=== PATIENT | male | born 1965 | race Caucasian/White ===

== ENCOUNTER 2021-04-01 16:37 | Inpatient (IN) | payer OTHER, SELFPAY ==
--- NOTE | ~2021-04-01 | CT_ITS ---
EXAMINATION: CT ABDOMEN AND PELVIS WITH CONTRAST CLINICAL INFORMATION: Abdominal tenderness and pain COMPARISON: None TECHNIQUE: Multidetector volumetric images were obtained from the superior aspect of the liver through the pubic symphysis following administration 100 mL of Omnipaque 350 intravenous contrast. Sagittal and coronal reformatted images were obtained on the technologist's workstation. Oral contrast: No This CT examination was performed using dose optimization techniques as appropriate, variously including the following: *Automated exposure control *Adjustment of mA and/or kV according to patient size (this includes techniques or standardized protocols for targeted exams where dose is matched to indication/reason for exam; i.e. extremities or head) *Use of iterative reconstruction technique DLP: 1789 mGy-cm FINDINGS: LUNG BASES: The visualized lung bases are unremarkable. LIVER, GALLBLADDER, AND BILIARY TREE: The liver is normal in size, shape, and attenuation. No focal hepatic lesion or biliary ductal dilatation is present. The gallbladder is unremarkable with no evidence of radiopaque gallstones, gallbladder wall thickening, or obvious pericholecystic inflammatory changes. PANCREAS: Unremarkable. SPLEEN: Unremarkable. ADRENAL GLANDS: Unremarkable. KIDNEYS AND URETERS: The kidneys are normal in size, shape, and attenuation. No hydronephrosis, hydroureter, or calculi seen. No perinephric stranding. BLADDER: Unremarkable. GASTROINTESTINAL TRACT: A areas a loop of small bowel contained within umbilical hernia. There is mild wall hyperemia. Proximal to small bowel's entrance into the hernia is mildly dilated and has mild surrounding inflammatory changes. The remainder of the small bowel is normal in caliber. The colon is normal in caliber. Colonic diverticulosis is noted. ABDOMINAL WALL: Umbilical hernia containing a loop of small bowel and a small amount of free fluid. The hernia neck measures 2.2 cm. LYMPH NODES: Normal. VASCULAR: The abdominal aorta is normal in caliber. Mild calcific atherosclerotic disease. PELVIC VISCERA: Unremarkable. OSSEOUS STRUCTURES: Unremarkable. CT/CT abdomen pelvis w con IMPRESSION: Umbilical hernia containing a loop of small bowel. Evidence of strangulation including mild dilatation, wall hyperemia, and surrounding free fluid. Findings were discussed with KRISTAL Bejarano at 8:20pm.
[2021-04-01 16:56] VITALS: BP 158/99; PULSE 70; RESP 18; TEMP 36.7; O2SAT 98; BMI 34.4
[2021-04-01 18:24] LABS: MANUAL DIFF FLAG NO
[2021-04-01 18:28] LABS: Basophils Percent Auto 0.3 % (0-2); Eosinophils Absolute Auto 0.1 X10*3/uL (0.0-0.4); Eosinophils Percent Auto 1.3 % (0-4); Hematocrit 40.5 % (42-52); Imm Gran Abs Auto 0.02 X10*3/uL (0.00-0.03); Imm Gran Pct Auto 0.2 % (0.0-0.4); Lymphocytes Absolute Auto 3.2 X10*3/uL (1.2-4.9); Lymphocytes Percent Auto 30.9 % (20-40); Mean Corpuscular HGB Conc 32.1 g/dl (31.0-36.0); Mean Corpuscular Volume 90.2 fL (80-98); Monocytes Absolute Auto 0.8 X10*3/uL (0.1-1.2); Monocytes Percent Auto 7.3 % (2-11); Neutrophils Absolute Auto 6.3 X10*3/uL (2.0-8.3); Platelet Count 218 X10*3/uL (160-400); Red Blood Count 4.49 X10*6/uL (4.60-5.80); Red Cell Distribution Width 12.8 % (11.0-16.0); White Blood Count 10.4 X10*3/uL (4.8-10.8)
[2021-04-01 18:47] LABS: Alanine Aminotransferase 19 U/L (0-40); Alkaline Phosphatase 99 U/L (39-117); Anion Gap 14 (12-20); Aspartate Amino Transferase 17 U/L (5-37); Bilirubin Total 0.3 mg/dL (0.0-1.0); Blood Urea Nitrogen 16 mg/dL (9-16); Calcium 9.4 mg/dL (8.4-10.2); Carbon Dioxide 30 mmol/L (22-29); Chloride 100 mmol/L (96-108); Creatinine Clr Calc Pharmacy 125.6; Estimated Glomerular Filt Rate > 60; Glucose Random 129 mg/dL (60-115); Lipase 7 U/L (8-78); Magnesium 1.9 mg/dL (1.6-2.6); Sodium 140 mmol/L (135-145); Total Protein 7.3 g/dL (6.5-8.0)
[2021-04-01] MEDS: iohexoL 350 MG/ML 100 ML INFUS..BTL IV (19:55)
--- NOTE | 2021-04-01 20:14 | ED_ITS ---
HPI - Abdominal Pain General Chief Complaint: Abdominal Pain Stated Complaint: Abdominal pain Time Seen by Provider: 04/01/21 17:29 Source: patient Mode of arrival: ambulatory Limitations: no limitations History of Present Illness HPI narrative: 55-year-old male with past medical history of obesity and hypertension presents with 3 days of severe central abdominal pain just above his umbilicus. States that he can feel something popping out. He does report having approximately 3 months of abdominal tenderness and changes in bowel habits after feeling a pop feeling in his abdomen. He did follow-up with his primary care however there were substantial findings at that time. He does state to feel tired, but does not report any fevers, chills, chest pain or pressure, palpitations, shortness of breath, shortness of breath on exertion, abdominal distention, dysuria, hematuria, nausea, vomiting, diarrhea, cons tipation, anorexia, or edema. MD elicited complaint: abdominal pain Onset (ago): day(s) (3) Pain Consistency: constant Location: periumbilical Severity: severe Pain scale (0-10): 9 Quality: aching Radiation: none Exacerbating factors: bowel movement and movement Relieving factors: nothing Associated symptoms: denies other symptoms Related Data Home Medications Medication Instructions Recorded Confirmed doxycycline monohydrate 1 cap PO BID 04/01/21 04/01/21 lisinopril-hydrochlorothiazide 1 tab PO DAILY 04/01/21 Allergies Allergy/AdvReac Type Severity Reaction Status Date / Time No Known Allergies Allergy Verified 04/01/21 17:29 Review of Systems Review of Systems Constitutional: Positive fatigue, No Weight loss, No Fever, No Chills, No Night Sweats, No Malaise ENT/Mouth: No Hearing loss, No Ear Pain, No Nasal Congestion, No Sinus Pain, No Hoarseness, No sore throat, No Rhinorrhea, No Swallowing Difficulty Eyes: No Eye Pain, No Swelling, No Redness, No Foreign Body, No Discharge, No Vision Changes Cardiovascular: No Chest Pain, No SOB, No Dyspnea on Exertion, No Orthopnea, No Edema, No Palpitations Respiratory: No Cough, No Sputum, No Wheezing, No Smoke Exposure, No Dyspnea Gastrointestinal: Positive abdominal pain umbilicus, no nausea, no Vomiting, no Diarrhea, no abdominal Pain, No Hematochezia, No Melena Genitourinary: no irregular bleeding, No Dysuria, No Urinary Frequency, No Hematuria, No Urinary Incontinence, No Urgency, No Flank Pain, No Urinary Flow Changes, No Hesitancy Musculoskeletal: No joint pain, No Myalgias, No Joint Swelling Skin: No Skin Lesions, No rash Neuro: No Weakness, No Numbness, No Paresthesias, No Loss of Consciousness, No Dizziness, No Headache Psych: No Anxiety/Panic, No Depression, No SI/HI/AH/VH, No Social Issues Heme/Lymph: No Bruising, No Bleeding,No Lymphadenopathy Endocrine: No Polyuria, No Polydipsia, No Temperature Intolerance Yes all other systems are reviewed and are negative Physical Exam Vital Signs: Vital Signs: Last Vital Signs Temp 97.6 F 04/01/21 21:06 Pulse 76 04/01/21 21:06 Resp 17 04/01/21 21:06 BP 161/113 H 04/01/21 21:06 Pulse Ox 96 04/01/21 21:06 Body Mass Index 34.4 Appearance: Alert. Oriented X3. Moderate distress. Eyes: Pupils equal, round and reactive to light. ENT: Pharynx normal. Moist mucous membranes Neck: Normal inspection. Neck supple. CVS: Normal heart rate and rhythm. Pulses normal. Respiratory: No respiratory distress. Breath sounds normal. Abdomen: Soft and ventrally tender Skin: Skin warm and dry. Normal skin color. Normal skin turgor. Extremities: No lower extremity edema. Neuro: No motor deficit. No sensory deficit. Cranial nerves 2-12 intact Course Course Course Narrative: 55-year-old male with past medical history of hypertension and obesity presents with 3 days of intense umbilical abdominal pain. Feels like something is popping out of his belly button. Patient has an obese body habitus and exam is limited. Will order CT scan of abdomen pelvis with contrast. Lab values are otherwise unremarkable. Labs were drawn while in the emergency department. 8:18 p.m. radiology called to update on CT scan results, strangulated umbilical hernia with inflammatory changes, no free air. Order for type and screen, EKG, cultures, Zosyn and pain management. Discussion with Dr. Land at 8:29 p.m.. Plan will be to admit to surgery for the morning. Discussed with patient and he agrees with plan of care. MDM - Abdominal Pain Differential Diagnosis Differential diagnosis: Likely abdominal pain, aortic dissection, acute appendicitis, bowel perforation, constipation and small bowel obstruction Differential diagnosis narrative:: Hernia Medical Records Attestation: I reviewed the patient's medical records. Lab Data Attestation: I reviewed the patient's lab results. Result diagrams: 04/01/21 18:17 04/01/21 18:17 Labs: Lab Results 04/01/21 04/01/21 04/01/21 Range/Units 18:17 18:17 18:17 WBC 10.4 (4.8-10.8) X10*3/uL RBC 4.49 L (4.60-5.80) X10*6/uL Hgb 13.0 L (14.0-18.0) g/dl Hct 40.5 L (42-52) % MCV 90.2 (80-98) fL MCH 29.0 (27.0-33.0) pg MCHC 32.1 (31.0-36.0) g/dl RDW 12.8 (11.0-16.0) % Plt Count 218 (160-400) X10*3/uL MPV 9.0 L (9.4-12.4) fL Immature Gran % (Auto) 0.2 (0.0-0.4) % Neut % (Auto) 60.0 (45-73) % Lymph % (Auto) 30.9 (20-40) % [place] % (Auto) 7.3 (2-11) % Eos % (Auto) 1.3 (0-4) % Baso % (Auto) 0.3 (0-2) % Lymph # (Auto) 3.2 (1.2-4.9) X10*3/uL [place] # (Auto) 0.8 (0.1-1.2) X10*3/uL Eos # (Auto) 0.1 (0.0-0.4) X10*3/uL Baso # (Auto) 0.0 (0.0-0.2) X10*3/uL Abs Immat Gran (auto) 0.02 (0.00-0.03) X10*3/uL Absolute Neuts (auto) 6.3 (2.0-8.3) X10*3/uL Absolute Nucleated RBC 0.000 (0.0-0.012) X10*3/uL Nucleated RBC % (auto) 0.0 (0.0-0.2) /100WBC Hold Purple Top SEE NOTE Sodium 140 (135-145) mmol/L Potassium 4.0 (3.3-5.1) mmol/L Chloride 100 (96-108) mmol/L Carbon Dioxide 30 H (22-29) mmol/L Anion Gap 14 (12-20) BUN 16 (9-16) mg/dL Creatinine 0.84 (0.5-1.4) mg/dL Estim Creat Clear Calc 125.6 Estimated GFR > 60 Random Glucose 129 H (60-115) mg/dL Calcium 9.4 (8.4-10.2) mg/dL Magnesium 1.9 (1.6-2.6) mg/dL Total Bilirubin 0.3 (0.0-1.0) mg/dL AST 17 (5-37) U/L ALT 19 (0-40) U/L Alkaline Phosphatase 99 (39-117) U/L Total Protein 7.3 (6.5-8.0) g/dL Albumin 4.0 (3.5-5.0) g/dL Lipase 7 L (8-78) U/L Urine Color Urine Appearance Urine pH (5.0-8.0) Ur Specific [place] (1.005-1.025) Urine Protein (NEG-TRACE) MG/DL Urine Glucose (UA) (NEG) MG/DL Urine Ketones (NEG) MG/DL Urine Blood (NEG) Urine Nitrite (NEG) Ur Leukocyte Esterase (NEG) COVID-19 (YOLANDA) (Negative) COVID-19 Clin [facility] Blood Type Antibody Screen 04/01/21 04/01/21 04/01/21 Range/Units 20:58 20:58 21:02 WBC (4.8-10.8) X10*3/uL RBC (4.60-5.80) X10*6/uL Hgb (14.0-18.0) g/dl Hct (42-52) % MCV (80-98) fL MCH (27.0-33.0) pg MCHC (31.0-36.0) g/dl RDW (11.0-16.0) % Plt Count (160-400) X10*3/uL MPV (9.4-12.4) fL Immature Gran % (Auto) (0.0-0.4) % Neut % (Auto) (45-73) % Lymph % (Auto) (20-40) % [place] % (Auto) (2-11) % Eos % (Auto) (0-4) % Baso % (Auto) (0-2) % Lymph # (Auto) (1.2-4.9) X10*3/uL [place] # (Auto) (0.1-1.2) X10*3/uL Eos # (Auto) (0.0-0.4) X10*3/uL Baso # (Auto) (0.0-0.2) X10*3/uL Abs Immat Gran (auto) (0.00-0.03) X10*3/uL Absolute Neuts (auto) (2.0-8.3) X10*3/uL Absolute Nucleated RBC (0.0-0.012) X10*3/uL Nucleated RBC % (auto) (0.0-0.2) /100WBC Hold Purple Top Sodium (135-145) mmol/L Potassium (3.3-5.1) mmol/L Chloride (96-108) mmol/L Carbon Dioxide (22-29) mmol/L Anion Gap (12-20) BUN (9-16) mg/dL Creatinine (0.5-1.4) mg/dL Estim Creat Clear Calc Estimated GFR Random Glucose (60-115) mg/dL Calcium (8.4-10.2) mg/dL Magnesium (1.6-2.6) mg/dL Total Bilirubin (0.0-1.0) mg/dL AST (5-37) U/L ALT (0-40) U/L Alkaline Phosphatase (39-117) U/L Total Protein (6.5-8.0) g/dL Albumin (3.5-5.0) g/dL Lipase (8-78) U/L Urine Color YELLOW Urine Appearance CLEAR Urine pH 8.0 (5.0-8.0) Ur Specific [place] 1.010 (1.005-1.025) Urine Protein TRACE (NEG-TRACE) MG/DL Urine Glucose (UA) NEG (NEG) MG/DL Urine Ketones NEG (NEG) MG/DL Urine Blood NEG (NEG) Urine Nitrite NEG (NEG) Ur Leukocyte Esterase NEG (NEG) COVID-19 (YOLANDA) Negative (Negative) COVID-19 Clin Com See Note Blood Type O Positive Antibody Screen NEGATIVE Imaging Data CT scan - abdomen: Attestation: I personally reviewed and interpreted this imaging study as follows: Radiologist's impression: FINDINGS: LUNG BASES: The visualized lung bases are unremarkable. LIVER, GALLBLADDER, AND BILIARY TREE: The liver is normal in size, shape, and attenuation. No focal hepatic lesion or biliary ductal dilatation is present. The gallbladder is unremarkable with no evidence of radiopaque gallstones, gallbladder wall thickening, or obvious pericholecystic inflammatory changes. PANCREAS: Unremarkable. SPLEEN: Unremarkable. ADRENAL GLANDS: Unremarkable. KIDNEYS AND URETERS: The kidneys are normal in size, shape, and attenuation. No hydronephrosis, hydroureter, or calculi seen. No perinephric stranding. BLADDER: Unremarkable. GASTROINTESTINAL TRACT: A areas a loop of small bowel contained within umbilical hernia. There is mild wall hyperemia. Proximal to small bowel's entrance into the hernia is mildly dilated and has mild surrounding inflammatory changes. The remainder of the small bowel is normal in caliber. The colon is normal in caliber. Colonic diverticulosis is noted. ABDOMINAL WALL: Umbilical hernia containing a loop of small bowel and a small amount of free fluid. The hernia neck measures 2.2 cm. LYMPH NODES: Normal. VASCULAR: The abdominal aorta is normal in caliber. Mild calcific atherosclerotic disease. PELVIC VISCERA: Unremarkable. OSSEOUS STRUCTURES: Unremarkable. CT/CT abdomen pelvis w con IMPRESSION: Umbilical hernia containing a loop of small bowel. Evidence of strangulation including mild dilatation, wall hyperemia, and surrounding free fluid. Findings were discussed with KRISTAL Bejarano at 8:20pm. Critical Care Time Critical Care Time Critical Care Time: Yes Total Critical Care Time: 45 Attestation: I have personally provided critical care time exclusive of time spent on separately billable procedures. Time includes review of laboratory data, rad iology results, discussion with consultants, and monitoring for potential decompensation. Interventions were performed as documented. Discharge Plan Discharge Clinical Impression: Hernia Patient Disposition: Admitted As Inpatient [facility] Past Medical History Attestation statement: The following information was validated with the patient. Source: old records reviewed Medical History (Updated 04/01/21 @ 21:40 by Jessica Land MD) HTN (hypertension) Lyme disease Surgical History (Updated 04/01/21 @ 21:40 by Jessica Land MD) H/O arthroscopy of right knee Social History Social History (Updated 04/01/21 @ 21:41 by Jessica Land MD) Alcohol intake: never Patient Tobacco Use Status: Never used Tobacco Substance Use Type: Crack/Cocaine Substance Use Frequency: Occasionally Last Used Substance: Days (ago) Last Used Substance Other:: 03/29/21 Advance Directives: No Advance Directives Information Provided: Yes
--- NOTE | 2021-04-01 20:26 | ECG_ITS ---
Test Reason : ABDOMINAL PAIN Blood Pressure : / mmHG Vent. Rate : 059 BPM Atrial Rate : 059 BPM P-R Int : 130 ms QRS Dur : 098 ms QT Int : 410 ms P-R-T Axes : 048 074 040 degrees QTc Int : 405 ms Sinus bradycardia Inferior infarct , age undetermined Abnormal ECG No previous ECGs available Referred By: Yanna Cano Electronically Signed By:AALIYAH GUILLERMO MD
--- NOTE | 2021-04-01 20:28 | PC.NURSE ---
Pt last ate 2 hours ago.
[2021-04-01 21:06] VITALS: BP 161/113; PULSE 76; RESP 17; TEMP 36.4; O2SAT 96
[2021-04-01] MEDS: Piperacillin Sodium/Tazobactam 3.375 GM in 0.9 % Sodium Chloride 50 ML IV (21:10)
[2021-04-01] MEDS: Morphine Sulfate 4 MG/ML CARTRIDGE IVPUSH (21:11)
[2021-04-01] MEDS: 0.9 % Sodium Chloride 1,000 ML 999 ML IVCONT (21:12)
[2021-04-01 21:22] LABS: Glucose Urine UA NEG (NEG); Leukocyte Esterase Urine NEG (NEG); Nitrite Urine NEG (NEG); Urine Blood NEG (NEG); Urine Ketones NEG (NEG); Urine Protein TRACE MG/DL (NEG-TRACE)
[2021-04-01 21:25] LABS: COVID-19 Test Negative (Negative)
[2021-04-01 21:26] LABS: Appearance Urine CLEAR; Color Urine YELLOW
--- NOTE | 2021-04-01 21:28 | PC.NURSE ---
Dr Land at bedside discussing plan for surgery with pt and pt's s/o. Pt expresses understanding. Pt medicated per NOV. Pt HTN, Dr Land aware and Yanna ROMEO made aware. Stretcher low locked, rails raised.
--- NOTE | 2021-04-01 21:32 | PM.HPGS ---
History of Present Illness History of Present Illness Date of Service: 04/01/21 Chief complaint: Abdominal pain Narrative: Zander Juarez is a 55 year old male who has a 3 day history of central abdominal pain slowly worsening. The pain became severe while he was at work today, and he presented to the emergency department for evaluation. He reports that the problem began about 3 months ago. He felt a pop in his mid abdomen and has experienced abdominal pain on and off. The problem became more persistent about 3 days ago. He also reports recent difficulty with constipation and has been straining. He does not note a temporal relationship between straining and onset of the abdominal pain. He has not experienced nausea or vomiting. He has been able to eat normally. In the emergency room, a CT scan of the abdomen and pelvis was obtained. This demonstrated a loop of small bowel present within an umbilical hernia. There is a small amount of fluid present. Findings were interpreted as consistent with a strangulated hernia; however, ED staff was able to reduce the hernia, and the patient reports significant improvement in abdominal pain following this. He is under treatment for Lyme disease. Presenting symptoms included fever and rash. He is taking doxycycline. Symptoms have resolved. Review of Systems Constitutional: Constitutional: Denies chills and Denies fever(s) Eyes: Eyes: Reports requires corrective lenses (For reading only) ENT: Reports Normal hearing present Cardiovascular: Cardiovascular: Denies chest pain, Denies palpitations and Denies dyspnea Respiratory: Respiratory: Denies cough, Denies dyspnea and Denies wheezing Gastrointestinal: Gastrointestinal: Reports as per HPI Genitourinary: Genitourinary: Denies dysuria Musculoskeletal: Comments: Right knee pain, uses cane for ambulation Integumentary/Breasts: Skin/Breast: Reports rash (Recent welts due to Lyme disease, resolved with doxycycline) Neurologic: Reports Normal hearing present Endocrine: Endocrine: Denies palpitations Allergic/Immunologic: Allergic/Immunologic: Denies wheezing PMF Past Medical History Medical History (Updated 04/01/21 @ 21:40 by Jessica Land MD) HTN (hypertension) Lyme disease Surgical History Surgical History (Updated 04/01/21 @ 21:40 by Jessica Land MD) H/O arthroscopy of right knee Social History Social History (Updated 04/01/21 @ 21:41 by Jessica Land MD) Alcohol intake: never Patient Tobacco Use Status: Never used Tobacco Substance Use Type: Crack/Cocaine Substance Use Frequency: Occasionally Last Used Substance: Days (ago) Last Used Substance Other:: 03/29/21 Advance Directives: No Advance Directives Information Provided: Yes Meds Allergies Allergy/AdvReac Type Severity Reaction Status Date / Time No Known Allergies Allergy Verified 04/01/21 17:29 Home Medications Medication Instructions Recorded Confirmed Last Taken Type lisinopril-hydrochlorothiazide 1 tab PO DAILY 04/01/21 Unknown History Physical Exam Vital Signs: Vital Signs: Last Vital Signs Temp 97.6 F 04/01/21 21:06 Pulse 76 04/01/21 21:06 Resp 17 04/01/21 21:06 BP 161/113 H 04/01/21 21:06 Pulse Ox 96 04/01/21 21:06 Body Mass Index 34.4 Const: General: cooperative, no acute distress and alert HENMT: Head: Yes normocephalic and Yes atraumatic Eyes: EOM: EOMs intact bilaterally Resp: Effort & Inspection: normal respiratory effort Auscultation: clear to auscultation bilaterally Cardio: Rate: regular rate Rhythm: regular rhythm GI: Other: Round, soft, nondistended, bowel sounds active, umbilical hernia present, mild tenderness surrounding soft tissues Skin: Rashes: no rashes Neuro: Cranial nerves: Yes Normal hearing present Extrem: General: Yes edema (Bilateral lower legs) Results Results Labs: Short CBC 04/01/21 Range/Units 18:17 WBC 10.4 (4.8-10.8) X10*3/uL Hgb 13.0 L (14.0-18.0) g/dl Hct 40.5 L (42-52) % Plt Count 218 (160-400) X10*3/uL BMP 04/01/21 18:17 Sodium 140 Potassium 4.0 Chloride 100 Carbon Dioxide 30 H BUN 16 Creatinine 0.84 Calcium 9.4 Liver Function 04/01/21 Range/Units 18:17 Total Bilirubin 0.3 (0.0-1.0) mg/dL AST 17 (5-37) U/L ALT 19 (0-40) U/L Alkaline Phosphatase 99 (39-117) U/L Albumin 4.0 (3.5-5.0) g/dL Urine 04/01/21 Range/Units 20:58 Urine Color YELLOW Urine Appearance CLEAR Urine pH 8.0 (5.0-8.0) Ur Specific [place] 1.010 (1.005-1.025) Urine Protein TRACE (NEG-TRACE) MG/DL Urine Glucose (UA) NEG (NEG) MG/DL Assessment and Plan (1) Umbilical hernia: Status: Acute 55-year-old male presenting with symptomatic umbilical hernia, likely incarcerated on presentation and reduced by ED staff. Because of escalating symptoms and incarceration, urgent repair is appropriate. I discussed this with him and reviewed the technique for open repair as and for laparoscopic repair. We discussed the anticipated course of recovery and risks including but not limited to recurrence, infection, bleeding, DVT and PE. We discussed the use of mesh. He agrees to proceed. He will be admitted tonight with tentative plan for surgery tomorrow. He is aware that Dr. Joiner or Dr. Jack will see him tomorrow and will assume care. Doxycycline will be continued for treatment of Lyme disease. Usual antihypertensive medication will be continued as well. BP noted to be high in the emergency department. This may be due, at least in part, to acute pain. Quality Stroke Does the patient have a stroke diagnosis?: No VTE Prior VTE?: No VTE Risk Level:: Surgical - moderate VTE Device Contraindication: N/A - Device Ordered VTE Drug Contraindication: Treatment Not Indicated Procedures Date of Service Date of Service: 04/01/21
--- NOTE | 2021-04-01 22:02 | PHA.MEDREC ---
Pharmacy Consult ? Medication Reconciliation Pharmacy has completed the medication reconciliation.
[2021-04-01 22:27] VITALS: BP 137/80; PULSE 62; RESP 20; TEMP 36.7; O2SAT 99
[2021-04-01 23:20] VITALS: BP 137/80; PULSE 64; RESP 15; TEMP 36.7; O2SAT 99
[2021-04-01] MEDS: Dextrose 5 % and Lactated Ring 1,000 ML 100 ML IVCONT (23:23)
[2021-04-02] VITALS (19 sets, daily range): BP systolic 117–191; BP diastolic 62–102; PULSE 57–78; RESP 12–18; TEMP 36.1–36.6; O2SAT 92–99
--- NOTE | 2021-04-02 07:37 | PC.NURSE ---
Called [facility] – [place], [place] for nurse to nurse report, awaiting callback.
[2021-04-02] MEDS: lisinopriL 20 MG TABLET PO (09:37)
[2021-04-02] MEDS: Dextrose 5 % and Lactated Ring 1,000 ML 100 ML IVCONT ×2 (09:37→22:05)
[2021-04-02] MEDS: Morphine Sulfate 4 MG/ML CARTRIDGE IVPUSH ×3 (09:37→22:16)
--- NOTE | 2021-04-02 09:39 | MHC.CM.PN ---
CM met with Patient at bedside. Patient lives in an apartment with his Girlfriend/HCP/Alyson and he works and has a cane to assist with mobility. Patient's goal is to return home and CM has initiated and will follow for dc planning. PCP is Dr. Noa Thakur.
--- NOTE | 2021-04-02 11:22 | PC.NURSE ---
PATIENT ARRIVED TO UNIT WITH 20G RIGHT AC IV.
--- NOTE | 2021-04-02 11:44 | P.CONAN_ITS ---
HPI - Anesthesia Eval Consult details Narrative: umbilical hernia pain PMFSH Active Problems Active Problems: All Active Problems (Updated 04/01/21 @ 21:40 by Jessica Land MD) Umbilical hernia (Acute) Hernia (Acute) Past Medical History Medical History HTN (hypertension) Lyme disease Surgical History Surgical History H/O arthroscopy of right knee Social History Social History Household Members: Significant Other Housing: Apartment Do you presently have visiting nurse or other home services: Yes Alcohol intake: never Patient Tobacco Use Status: Never used Tobacco Use of substances other than those prescribed or required for medical reasons: No Substance Use Type: Crack/Cocaine Substance Use Frequency: Occasionally Last Used Substance: Days (ago) Last Used Substance Other:: 03/29/21 Have you been hit, kicked, punched, or otherwise hurt by someone within the past year? If so, by whom?: No Do you feel safe in your current relationship?: No Is there a partner from a previous relationship who is making you feel unsafe now?: No Are you DNR?: No Advance Directives: No Advance Directives Information Provided: Yes Advance Directives on File: No Do you have thoughts of harming others: None Recently lost weight without trying: No Eating poorly because of decreased appetite: No Nutrition Risks: No Nutritional Risk Poor oral hygiene: No service: Yes Current occupational status: employed Meds Allergies Allergy/AdvReac Type Severity Reaction Status Date / Time No Known Allergies Allergy Verified 04/01/21 17:29 Active Medications: Current Medications Generic Name Dose Route Start Last Admin Trade Name Freq PRN Reason Stop Dose Admin Acetaminophen 650 mg 04/01/21 22:11 Acetaminophen 325 Mg Tablet PO Q6H PRN Pain, Mild (Pain Scale 1-3) Doxycycline Hyclate 100 mg 04/01/21 22:11 04/02/21 09:37 Doxycycline Hyclate 100 Mg Tablet PO 100 mg Q12H SHIRLEY Administration Hydralazine HCl 5 mg 04/01/21 22:11 Hydralazine Hcl 20 Mg/Ml Vial IVPUSH Q6H PRN SBP > 160 Dextrose/Lactated Ringer's 1,000 mls @ 100 mls/hr 04/01/21 22:11 04/02/21 09:37 D5lr IVCONT 100 mls/hr .Q10H SHIRLEY Administration Cefazolin Sodium/Dextrose 2 gm in 50 mls @ 100 mls/hr 04/02/21 12:00 Ancef IV 04/02/21 12:29 PREOP ONE Lactated Ringer's 1,000 mls @ 50 mls/hr 04/02/21 11:45 Lr IVCONT .Q20H SHIRLEY Lisinopril 20 mg 04/02/21 09:00 04/02/21 09:37 Lisinopril 20 Mg Tablet PO 20 mg DAILY SHIRLEY Administration Protocol Morphine Sulfate 4 mg 04/01/21 22:11 04/02/21 09:37 Morphine Sulfate 4 Mg/Ml Cartridge IVPUSH 4 mg Q3H PRN Administration Pain, severe Ondansetron HCl 4 mg 04/01/21 22:11 Ondansetron Hcl 4 Mg/2 Ml Vial IVPUSH Q8H PRN Nausea Pharmacy Consult 1 each 04/01/21 21:42 Consult Rx Perform Med Rec MISCELLANE ONCE PRN Consult order Home Medications Medication Instructions Recorded Confirmed Last Taken Type doxycycline monohydrate 1 cap PO BID 04/01/21 04/01/21 04/01/21 History lisinopril-hydrochlorothiazide 1 tab PO DAILY 04/01/21 04/01/21 04/01/21 History Exam Exam Date and Time: April 02, 2021 1144 Height,Weight and Vital Signs: Height 5 ft 10 in Weight 108.862 kg Last Vital Signs Temp 97.6 F 04/02/21 11:14 Pulse 59 04/02/21 11:19 Resp 16 04/02/21 11:19 BP 168/99 H 04/02/21 11:19 Pulse Ox 98 04/02/21 11:19 Pertinent Lab Results Pertinent Lab Results: Laboratory Tests 04/01/21 04/01/21 04/01/21 18:17 18:17 18:17 WBC 10.4 RBC 4.49 L Hgb 13.0 L Hct 40.5 L MCV 90.2 MCH 29.0 MCHC 32.1 RDW 12.8 Plt Count 218 MPV 9.0 L Immature Gran % (Auto) 0.2 Neut % (Auto) 60.0 Lymph % (Auto) 30.9 [place] % (Auto) 7.3 Eos % (Auto) 1.3 Baso % (Auto) 0.3 Lymph # (Auto) 3.2 [place] # (Auto) 0.8 Eos # (Auto) 0.1 Baso # (Auto) 0.0 Abs Immat Gran (auto) 0.02 Absolute Neuts (auto) 6.3 Absolute Nucleated RBC 0.000 Nucleated RBC % (auto) 0.0 Hold Purple Top SEE NOTE Sodium 140 Potassium 4.0 Chloride 100 Carbon Dioxide 30 H Anion Gap 14 BUN 16 Creatinine 0.84 Estim Creat Clear Calc 125.6 Estimated GFR > 60 Random Glucose 129 H Calcium 9.4 Magnesium 1.9 Total Bilirubin 0.3 AST 17 ALT 19 Alkaline Phosphatase 99 Total Protein 7.3 Albumin 4.0 Lipase 7 L Urine Color Urine Appearance Urine pH Ur Specific [place] Urine Protein Urine Glucose (UA) Urine Ketones Urine Blood Urine Nitrite Ur Leukocyte Esterase COVID-19 (YOLANDA) COVID-[facility] Blood Type Antibody Screen 04/01/21 04/01/21 04/01/21 20:58 20:58 21:02 WBC RBC Hgb Hct MCV MCH MCHC RDW Plt Count MPV Immature Gran % (Auto) Neut % (Auto) Lymph % (Auto) [place] % (Auto) Eos % (Auto) Baso % (Auto) Lymph # (Auto) [place] # (Auto) Eos # (Auto) Baso # (Auto) Abs Immat Gran (auto) Absolute Neuts (auto) Absolute Nucleated RBC Nucleated RBC % (auto) Hold Purple Top Sodium Potassium Chloride Carbon Dioxide Anion Gap BUN Creatinine Estim Creat Clear Calc Estimated GFR Random Glucose Calcium Magnesium Total Bilirubin AST ALT Alkaline Phosphatase Total Protein Albumin Lipase Urine Color YELLOW Urine Appearance CLEAR Urine pH 8.0 Ur Specific [place] 1.010 Urine Protein TRACE Urine Glucose (UA) NEG Urine Ketones NEG Urine Blood NEG Urine Nitrite NEG Ur Leukocyte Esterase NEG COVID-19 (YOLANDA) Negative COVID-[facility] See Note Blood Type O Positive Antibody Screen NEGATIVE Airway Mallampati Class: III TM Dist: >3cm Neck ROM: Full Loose/Missing/Broken Teeth: No Heart: [id number] Lungs: cta b/l Assessment and Plan Assessment Anesthesia Assessment: Anesthesia Plan Discussed and Chart Reviewed Final Anesthetic Review NPO: Yes ASA Class: II Final Preanesthetic Review: No Changes in Pt Med Stat, Meds/Allgs Chart Reviewed, Consent Obtained/Reviewed and Anes Risks/Benef Reviewed Patient Risk: Intermediate Procedure Risk: Low Assessment/Block/Sedation in SS: Assess/Block/Sedation-SS Anesthetic Plan Anesthetic Plan: GA and Agree w/ Assess. and Plan Disposition: Standard PACU
--- NOTE | 2021-04-02 12:08 | MHC.SHP ---
Pre-Procedural Eval Section A Date of Service: 04/02/21 The patient is an INPATIENT: Yes Section B Chief Complaint: Incarcerated umbilical hernia Allergies: Allergies Allergy/AdvReac Type Severity Reaction Status Date / Time No Known Allergies Allergy Verified 04/01/21 17:29 Plan Diagnosis/Plan: Unchanged I have reviewed the history and physical and performed a pertinent physical examination on my patient. No changes have occurred unless specified.
--- NOTE | 2021-04-02 13:37 | P.OP_ITS ---
Operative Note Operative Note Date of Service: 04/02/21 Narrative: Preoperative diagnosis: Umbilical hernia Postoperative diagnosis: Same Procedure: Repair of umbilical hernia with mesh Surgeon: Jaycob Joiner MD Patient Sitter: No physician Anesthesia: General endotracheal Indications for procedure: 55-year-old obese male with a painful umbilicus found to have an incarcerated umbilical hernia reduced in the emergency department. Operative findings: Umbilical hernia with no incarcerated bowel, surrounding inflammatory changes suggestive of a previous incarcerated bowel. Specimen: None Estimated blood loss: 10 mL Complications: None Procedure details: Patient was brought to the OR placed in a supine position. After administering general anesthesia the patient's abdomen was prepped with ChloraPrep and draped in a sterile fashion. A surgical time-out was called the consent confirmed. Patient received preoperative antibiotics and Venodyne boots were in place. Local anesthesia consisting of 0.25% Sensorcaine with epinephrine was infiltrated in the midline near the umbilicus. Curvilinear incision was made around the umbilicus and carried out through subcutaneous tissue. This continued down to the hernia sac. The hernia sac was then dissected down to the fascial edge. Because of the patient's body habitus this ended up being quite deep in the abdominal wall. Fascial edges were then further dissected in the hernia sac reduced into the abdominal cavity. A preperitoneal space was then created using electrocautery dissection. A 6.4 cm Ventralex mesh was then obtained. This was placed in the preperitoneal space and secured to the fascia using 1 Tycron suture. Fascia was then closed over the mesh using interrupted 1 Tycron sutures in a [id number] fashion. The abdominal cavity was then irrigated with saline solution suctioned dry. Umbilical skin was then secured to the fascial edge using a 3-0 Polysorb suture. Dermis was reapproximated using interrupted 3-0 Polysorb sutures. Skin was then closed using a running subcuticular 4-0 Polysorb suture. Skin was then sealed using Dermabond surgical glue. Sterile dressings were then applied. The patient tolerated the procedure well. Sponge, instrument, and needle counts reported as correct. The patient was transferred to PACU in stable condition.
[2021-04-02] MEDS: HYDROmorphone HCl 0.5 MG/0.5 ML SYRINGE IVPUSH ×2 (13:58→14:03)
[2021-04-02] MEDS: oxyCODONE HCl Immed Release 5 MG TABLET 10 MG PO (14:11)
[2021-04-02] MEDS: oxyCODONE HCl Immed Release 5 MG TABLET PO (18:38)
[2021-04-02] MEDS: vancomycin HCL 1,250 MG in 0.9 % Sodium Chloride 250 ML 166.67 MG IV (22:05)
[2021-04-03] MEDS: 0.9 % Sodium Chloride Flush 3 ML SYRINGE IVFLUSH ×3 (01:08→21:56)
[2021-04-03 03:23] VITALS: BP 134/75; PULSE 70; RESP 17; TEMP 36.7; O2SAT 97
[2021-04-03] MEDS: Morphine Sulfate 4 MG/ML CARTRIDGE IVPUSH ×4 (03:37→15:27)
[2021-04-03 06:19] LABS: MANUAL DIFF FLAG NO
[2021-04-03 06:23] LABS: Basophils Percent Auto 0.1 % (0-2); Eosinophils Percent Auto 0.2 % (0-4); Hematocrit 37.6 % (42-52); Hemoglobin 12.1 g/dl (14.0-18.0); Imm Gran Abs Auto 0.05 X10*3/uL (0.00-0.03); Imm Gran Pct Auto 0.5 % (0.0-0.4); Lymphocytes Absolute Auto 2.3 X10*3/uL (1.2-4.9); Lymphocytes Percent Auto 22.1 % (20-40); Mean Corpuscular HGB Conc 32.2 g/dl (31.0-36.0); Mean Corpuscular Hemoglobin 29.1 pg (27.0-33.0); Mean Corpuscular Volume 90.4 fL (80-98); Mean Platelet Volume 9.2 fL (9.4-12.4); Monocytes Absolute Auto 1.1 X10*3/uL (0.1-1.2); Monocytes Percent Auto 10.2 % (2-11); Neutrophils Absolute Auto 7.1 X10*3/uL (2.0-8.3); Neutrophils Percent Auto 66.9 % (45-73); Platelet Count 218 X10*3/uL (160-400); Red Blood Count 4.16 X10*6/uL (4.60-5.80); Red Cell Distribution Width 12.8 % (11.0-16.0); White Blood Count 10.5 X10*3/uL (4.8-10.8)
[2021-04-03] MEDS: Dextrose 5 % and Lactated Ring 1,000 ML 100 ML IVCONT ×2 (06:43→23:34)
[2021-04-03 08:00] VITALS: BP 140/74; PULSE 66; RESP 18; TEMP 36.9; O2SAT 94
[2021-04-03] MEDS: lisinopriL 20 MG TABLET PO (09:14)
[2021-04-03] MEDS: oxyCODONE HCl Immed Release 5 MG TABLET PO ×2 (10:07→14:54)
[2021-04-03 11:24] VITALS: BP 162/78; PULSE 72; RESP 18; TEMP 36.8; O2SAT 96
[2021-04-03] MEDS: vancomycin HCL 1,250 MG in 0.9 % Sodium Chloride 250 ML 166.67 MG IV ×2 (11:49→21:56)
[2021-04-03 15:16] VITALS: BP 148/84; PULSE 66; RESP 18; TEMP 36.6; O2SAT 96
--- NOTE | 2021-04-03 15:33 | P.PNGS_ITS ---
Subjective Subjective Date of Service: 04/03/21 Interval history: Pod 1. Status post repair of umbilical hernia with mesh. He reports incisional pain especially when getting out of bed. He does not want to get out of bed because of the pain. He was started on IV Tylenol which did seem to help his discomfort. Physical Exam Vital Signs: Vital Signs: Last Vital Signs Temp 98 F 04/03/21 15:16 Pulse 66 04/03/21 15:16 Resp 18 04/03/21 15:16 BP 148/84 H 04/03/21 15:16 Pulse Ox 96 04/03/21 15:16 Body Mass Index 34.4 Const: Other: Awake and alert, no acute distress Resp: Other: Breathing comfortably on room air, no respiratory distress GI: Other: Periumbilical incision is clean, dry, and intact. No erythema is appreciated. Extrem: Other: No edema Progress Note: A&P Assessment and plan (1) Umbilical hernia: Status: Acute Assessment and Plan: Postoperative day 1 status post repair of an umbilical hernia with mesh. The patient was encouraged to get out of bed and ambulate as much as possible. I will continue with the IV Tylenol for pain relief. Will add a stool softener for constipation. Will hold on discharge in till possibly tomorrow. Fall Risk Details Current Medications: Current Medications Generic Name Dose Route Start Last Admin Trade Name Derekq PRN Reason Stop Dose Admin Docusate Sodium 100 mg 04/03/21 15:32 Docusate Sodium 100 Mg Capsule PO BID PRN Constipation Hydralazine HCl 5 mg 04/01/21 22:11 Hydralazine Hcl 20 Mg/Ml Vial IVPUSH Q6H PRN SBP > 160 Dextrose/Lactated Ringer's 1,000 mls @ 100 mls/hr 04/01/21 22:11 04/03/21 15:27 D5lr IVCONT Not Given .Q10H SHIRLEY Insulin Human Regular 100 unit in 100 mls @ 0 mls/hr 04/02/21 15:15 Myxredlin IVCONT .Q0M [facility]LEY Protocol Per Protocol Vancomycin HCl 1,250 mg/ 250 mls @ 166.667 mls/hr 04/02/21 23:00 04/03/21 13:55 Sodium Chloride IV Infused Q12H SHIRLEY Infusion Acetaminophen 1,000 mg in 100 mls @ 400 mls/hr 04/03/21 12:00 04/03/21 12:24 Ofirmev IV Infused Q6H SH[facility]LEY Infusion Lisinopril 20 mg 04/02/21 09:00 04/03/21 09:14 Lisinopril 20 Mg Tablet PO 20 mg DAILY SHIRLEY Administration Protocol Morphine Sulfate 4 mg 04/01/21 22:11 04/03/21 15:27 Morphine Sulfate 4 Mg/Ml Cartridge IVPUSH 4 mg Q3H PRN Administration Pain, severe Ondansetron HCl 4 mg 04/01/21 22:11 Ondansetron Hcl 4 Mg/2 Ml Vial IVPUSH Q8H PRN Nausea Oxycodone HCl 5 mg 04/02/21 15:15 04/03/21 14:54 Oxycodone Hcl Immed Release 5 Mg Tablet PO 5 mg Q4H PRN Administration Pain, Moderate (Pain Scale 4-6 Pharmacy Consult 1 each 04/01/21 21:42 Consult Rx Perform Med Rec MISCELLANE ONCE PRN Consult order Pharmacy Consult 1 each 04/02/21 21:15 Consult Rx Vancomycin Dosing MISCELLANE DAILY PRN Consult order Sodium Chloride 3 ml 04/02/21 16:00 04/03/21 14:56 0.9 % Sodium Chloride Flush 3 Ml Syringe IVFLUSH Not Given QSHIFT FOR[facility], [facility]–1983 Time Spent With Patient Time: Total time spent is greater than 50% in coordination of care (as documented) at patient's floor/unit and/or counseling patient: Time with patient: 15 - 24 minutes Procedures Date of Service Date of Service: 04/03/21 Quality Stroke Does the patient have a stroke diagnosis?: No VTE Prior VTE?: No VTE Risk Level:: Surgical - moderate VTE Device Contraindication: N/A - Device Ordered VTE Drug Contraindication: Treatment Not Indicated
--- NOTE | 2021-04-03 15:57 | HO.POSTANES ---
Post Anesthesia Evaluation Post Anesthesia Evaluation Vital Signs: Vital Signs Temp Pulse Resp BP Pulse Ox 04/03/21 15:16 98 F 66 18 148/84 H 96 04/03/21 11:24 98.3 F 72 18 162/78 H 96 04/03/21 08:00 98.5 F 66 18 140/74 H 94 Anesthesia: General Endotracheal-GETA Mental Status: Awake Pain Control: Satisfactory Nausea/Vomiting: None Hydration: Adequate Anesthesia-Related Issues: No Anes. Related Issues
[2021-04-03] MEDS: Docusate Sodium 100 MG CAPSULE PO (18:40)
[2021-04-03 20:00] VITALS: BP 136/84; PULSE 64; RESP 18; TEMP 37.4; O2SAT 93
[2021-04-03 23:13] VITALS: BP 150/84; PULSE 63; RESP 18; TEMP 36.7; O2SAT 95
[2021-04-04 03:20] VITALS: BP 169/90; PULSE 54; RESP 18; TEMP 36.6; O2SAT 94
[2021-04-04 07:21] VITALS: BP 127/73; PULSE 61; RESP 18; TEMP 37.2; O2SAT 95
--- NOTE | 2021-04-04 08:06 | P.PNGS_ITS ---
Subjective Subjective Date of Service: 04/04/21 Interval history: Patient feels much improved today with decreased abdominal pain. He is able to ambulate with less discomfort. He feels ready for discharge to home. Physical Exam Vital Signs: Vital Signs: Last Vital Signs Temp 99.0 F 04/04/21 07:21 Pulse 61 04/04/21 07:21 Resp 18 04/04/21 07:21 BP 127/73 04/04/21 07:21 Pulse Ox 95 04/04/21 07:21 Body Mass Index 34.4 Const: General: cooperative, no acute distress and well developed Nutritional Appearance: obese Orientation/consciousness: patient oriented x3 Limitations: no limitations Resp: Effort & Inspection: normal respiratory effort, no stridor and not tachypneic Auscultation: no wheezes GI: Other: Abdominal incision is clean, dry, and intact. Inspection: Yes normal to inspection Palpation (GI): Soft to palpation, nontender, no guarding and not rigid Neuro: General: patient oriented x3 Extrem: General: Yes no clubbing, cyanosis or edema Progress Note: A&P Assessment and plan (1) Umbilical hernia: Status: Acute Assessment and Plan: Patient is status post repair of an incarcerated umbilical hernia with mesh. He tolerated the procedure well and is now ready for discharge to home. He was instructed to avoid lifting greater than 10 lb for the next 4 weeks. He should return to my office in approximately 1 week for wound examination. He should return for fevers, chills, nausea, vomiting, or increased abdominal pain. Fall Risk Details Current Medications: Current Medications Generic Name Dose Route Start Last Admin Trade Name Freq PRN Reason Stop Dose Admin Docusate Sodium 100 mg 04/03/21 15:32 04/03/21 18:40 Docusate Sodium 100 Mg Capsule PO 100 mg BID PRN Administration Constipation Hydralazine HCl 5 mg 04/01/21 22:11 Hydralazine Hcl 20 Mg/Ml Vial IVPUSH Q6H PRN SBP > 160 Dextrose/Lactated Ringer's 1,000 mls @ 100 mls/hr 04/01/21 22:11 04/03/21 23:34 D5lr IVCONT 100 mls/hr .Q10H SHIRLEY Administration Insulin Human Regular 100 unit in 100 mls @ 0 mls/hr 04/02/21 15:15 Myxredlin IVCONT .Q0M [facility] Protocol Per Protocol Vancomycin HCl 1,250 mg/ 250 mls @ 166.667 mls/hr 04/02/21 23:00 04/03/21 23:22 Sodium Chloride IV Infused Q12H SHIRLEY Infusion Acetaminophen 1,000 mg in 100 mls @ 400 mls/hr 04/03/21 12:00 04/04/21 05:38 Ofirmev IV Infused Q6H SHIRLEY Infusion Lisinopril 20 mg 04/02/21 09:00 04/03/21 09:14 Lisinopril 20 Mg Tablet PO 20 mg DAILY SHIRLEY Administration Protocol Morphine Sulfate 4 mg 04/01/21 22:11 04/03/21 15:27 Morphine Sulfate 4 Mg/Ml Cartridge IVPUSH 4 mg Q3H PRN Administration Pain, severe Ondansetron HCl 4 mg 04/01/21 22:11 Ondansetron Hcl 4 Mg/2 Ml Vial IVPUSH Q8H PRN Nausea Oxycodone HCl 5 mg 04/02/21 15:15 04/03/21 14:54 Oxycodone Hcl Immed Release 5 Mg Tablet PO 5 mg Q4H PRN Administration Pain, Moderate (Pain Scale 4-6 Pharmacy Consult 1 each 04/01/21 21:42 Consult Rx Perform Med Rec MISCELLANE ONCE PRN Consult order Pharmacy Consult 1 each 04/02/21 21:15 Consult Rx Vancomycin Dosing MISCELLANE DAILY PRN Consult order Sodium Chloride 3 ml 04/02/21 16:00 04/03/21 21:56 0.9 % Sodium Chloride Flush 3 Ml Syringe IVFLUSH 3 ml QSHIFT SHIRLEY Administration Time Spent With Patient Time: Total time spent is greater than 50% in coordination of care (as documented) at patient's floor/unit and/or counseling patient: Time with patient: 15 - 24 minutes Procedures Date of Service Date of Service: 04/04/21 Quality Stroke Does the patient have a stroke diagnosis?: No VTE Prior VTE?: No VTE Risk Level:: Surgical - moderate VTE Device Contraindication: N/A - Device Ordered VTE Drug Contraindication: Treatment Not Indicated
--- NOTE | 2021-04-04 08:06 | PM.DS ---
DS: Providers Provider Date of Service: 04/04/21 Date of admission: 04/01/21 21:57 Date of discharge: 04/04/21 Primary care physician: Noa Thakur NP Admitting clinician: Jessica Land Attending physician on admission: Jaycob Joiner Discharging clinician: Jaycob Joiner DS: Diagnosis Discharge Diagnosis (1) Umbilical hernia: Status: Acute DS: Medications Discharge Medications Home Medications: Home Medications Medication Instructions Recorded Confirmed doxycycline monohydrate 1 cap PO BID 04/01/21 04/01/21 lisinopril-hydrochlorothiazide 1 tab PO DAILY 04/01/21 04/01/21 Previous Rx's Medication Instructions Recorded oxycodone 5 mg PO Q6H PRN #20 tab 04/04/21 DS: Summary Hospital Course Hospital Course: Zander Juarez is a 55 year old male who has a 3 day history of central abdominal pain slowly worsening. The pain became severe while he was at work, and he presented to the emergency department for evaluation. He reports that the problem began about 3 months ago. He felt a pop in his mid abdomen and has experienced abdominal pain on and off. The problem became more persistent about 3 days ago. He also reports recent difficulty with constipation and has been straining. He does not note a temporal relationship between straining and onset of the abdominal pain. He has not experienced nausea or vomiting. He has been able to eat normally. In the emergency room, a CT scan of the abdomen and pelvis was obtained. This demonstrated a loop of small bowel present within an umbilical hernia. There is a small amount of fluid present. Findings were interpreted as consistent with a strangulated hernia; however, ED staff was able to reduce the hernia, and the patient reports significant improvement in abdominal pain following this. He is under treatment for Lyme disease. Presenting symptoms included fever and rash. He is taking doxycycline. Symptoms have resolved. He was taken to the OR for repair of this incarcerated/strangulated umbilical hernia on 04/02/2021. He tolerated the procedure well but experienced significant incisional pain for the 1st 24 hours. The patient reported having difficulty getting out of bed Tracy because of the pain but also because of his obesity. His incision remained clean and intact without redness or discharge. He was given IV Tylenol which dramatically improved his abdominal pain. Following this he was able to get out of bed and ambulate independently. On the postoperative day 2 he felt much more comfortable, tolerating a regular diet without nausea or vomiting and ambulating independently. He is to be discharged to home with follow-up in the office in approximately 1 week. He was instructed to avoid lifting greater than 10 lb the next month. He did have 1 positive blood culture for Staph coag-negative in 1 of 2 bottles. Subsequent blood cultures were negative which is suggestive of a contaminant. Time Spent with Patient Time attestation: Total time spent providing and/or coordinating discharge services: Discharge coordination time: Less than 30 minutes Quality: Stroke Does the patient have a stroke diagnosis?: No Physical Exam Vital Signs: Vital Signs: Last Vital Signs Temp 99.0 F 04/04/21 07:21 Pulse 61 04/04/21 07:21 Resp 18 04/04/21 07:21 BP 127/73 04/04/21 07:21 Pulse Ox 95 04/04/21 07:21 Body Mass Index 34.4 Const General: cooperative, no acute distress and well developed Nutritional Appearance: obese Orientation/consciousness: patient oriented x3 Limitations: no limitations Resp Effort & Inspection: normal respiratory effort, no stridor and not tachypneic Auscultation: no wheezes GI Other: Abdominal incision is clean, dry, and intact. Inspection: Yes normal to inspection Palpation (GI): Soft to palpation, nontender, no guarding and not rigid Neuro General: patient oriented x3 Extrem General: Yes no clubbing, cyanosis or edema DS: Data Data Completed and Pending Labs on day of discharge: Preliminary micro results at discharge 04/02/21 22:13 Blood Culture - Preliminary Blood - Venous No growth after 24 hours. 04/02/21 22:18 Blood Culture - Preliminary Blood - Venous No growth after 24 hours. 04/01/21 21:03 Blood Culture - Preliminary Blood - Venous No growth after 48 hours. Discharge Plan Discharge Patient Disposition: Home, Self-Care Discharge Diagnosis: Incarcerated umbilical hernia Referrals: Jaycob Joiner MD [Physician] - 1 Week Noa Thakur NP [Primary Care Provider] - 1 Week Discharge Medications: New oxycodone 5 mg tablet 5 mg PO Q6H PRN (Reason: pain) Qty: 20 RF: 0 Continued lisinopril-hydrochlorothiazide 20-25 mg tablet 1 tab PO DAILY RF: 0 doxycycline monohydrate 100 mg capsule 1 cap PO BID RF: 0 Discharge Orders: Discharge Order (Routine); Ordered 04/04/21 Ordered By: Jaycob Joiner Diet: advance to usual diet Activity on Discharge: No heavy lifting Stand Alone Forms: Patient Portal Discharge page Activity Restrictions/Additional Instructions: No lifting > 10 pounds for 4 weeks No driving for one week Ice to the incision x 24 hours Remove dressing in 3 days Follow up in office in one week. Care Plan Goals: return to normal activity in 1 month Health Concerns: painful umbilical lump Plan of Treatment: repair of incarcerated umbilical hernia Assessment: incarcerated umbilical hernia Discharge Date/Time: 04/04/21 11:01
--- NOTE | 2021-04-04 08:58 | MHC.CM.PN ---
Male 55 DX Hernia s/p surgical intervention is discharged today. No home services ordered. Patients providing transportation home.
[2021-04-04 10:14] VITALS: BP 127/73; PULSE 61
[2021-04-04 10:23] LABS: Vancomycin Trough 5.8 mcg/mL (10.0-20.0)
== END 2021-04-04 11:01 | disposition home or self-care (01) | DRG 228 ==
LOC: HO.ED 20:59 → HO.EDOVER 22:46 → HO.IMC 04-02 07:23
PROVIDERS: Nurse Practitioner Family; Physician Assistant Medical; Admitting Provider Surgery; Emergency Provider Internal Medicine; PCP Nurse Practitioner Family; Visit Provider Surgery
PROC: 0WUF0JZ Supplement Abdominal Wall with Synthetic Substitute, Open Approach (ICD-10-PCS; principal; 2021-04-02 12:00)
DX: K42.0 Umbilical hernia with obstruction, without gangrene (principal); A69.20 Lyme disease, unspecified; E66.9 Obesity, unspecified; I10 Essential (primary) hypertension; Z20.822 Contact with and (suspected) exposure to COVID-19; Z68.34 Body mass index [BMI] 34.0-34.9, adult; Z79.899 Other long term (current) drug therapy
CPT/HCPCS: 36415; 74177; 80053; 80202; 81003; 83690; 83735; 85025; 86850; 86900; 86901; 87040; 87147; 87205; 87635; 93005; 99024; 99285; C1781; J0131; J0690; J1100; J1170; J1885; J2250; J2270; J2405; J2543; J3010; J3370; Q9967

== ENCOUNTER → 2021-04-11 11:49 | Outpatient (BNVA) | payer OTHER, SELFPAY | PROVIDERS: PCP Nurse Practitioner Family; Referring Provider Nurse Practitioner Family; Visit Provider Surgery | DX: Z48.815 Encounter for surgical aftercare following surgery on the digestive system (principal); Z87.19 Personal history of other diseases of the digestive system | CPT/HCPCS: 99212 ==